=== PATIENT | male | born 1995 | race Hispanic/Latino ===

== ENCOUNTER 2018-10-16 21:23 | Emergency (ER) | payer SELFPAY ==
[~2018-10-16] VITALS: Ht 188 cm; Wt 68.0 kg
[2018-10-16] MEDS ORDERED: IBUPROFEN 600 MG TAB PO ONE (21:55)
[2018-10-16] MEDS ORDERED: CYCLOBENZAPRINE HCL 10 MG TAB PO ONE (22:00)
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
== END 2018-10-17 | disposition home or self-care (01) ==
LOC: ER 21:23
DX: S39.012A Strain of muscle, fascia and tendon of lower back, initial encounter (principal); V47.5XXA Car driver injured in collision with fixed or stationary object in traffic accident, initial encounter
CPT/HCPCS: 72110; 99283

== ENCOUNTER 2024-09-22 15:19 | Emergency (ER) | payer OTHER ==
[~2024-09-22] VITALS: Ht 188 cm; Wt 68.0 kg
[2024-09-22 15:41] VITALS: PULSE 104; RESP 18; TEMP 99
[2024-09-22] MEDS ORDERED: CEPHALEXIN500 MG PO (17:03)
[2024-09-22 17:48] VITALS: BP 121/65; PULSE 84; RESP 18; TEMP 98.6; O2SAT 99
[2024-09-22] MEDS: LIDOCAINE HCL 1% LOCAL INJ 20 ML VIAL INJ ONE (17:48)
== END 2024-09-22 17:25 | disposition home or self-care (01) ==
LOC: ER 15:24
DX: M79.645 Pain in left finger(s) (principal); L03.012 Cellulitis of left finger; F17.210 Nicotine dependence, cigarettes, uncomplicated
CPT/HCPCS: 10060; 99283; J2003